=== PATIENT | female | born 1990 | race Caucasian/White ===

== ENCOUNTER 2017-03-05 14:47 | Emergency (ER) | payer BC ==
[~2017-03-05] VITALS: Ht 162.6 cm; Wt 61.5 kg
[2017-03-05 14:49] VITALS: BP 112/63; PULSE 102; RESP 20; TEMP 99; O2SAT 100
[2017-03-05 15:48] LABS: BACTERIA, URINE MOD /hpf; BLOOD, URINE NEG (NEG); COMMENT (UR) CULTURE INDICATED; CULTURE IF INDICATED CULTURE INDICATED; GLUCOSE,URINE NEG (NEG); KETONE, URINE NEG (NEG); NITRITE,URINE POS (NEG); SQUAMOUS EPITHELIAL CELL URINE 3 /hpf (0-5); URINE COLOR YELLOW (YELLW/STRAW)
[2017-03-05] MEDS ORDERED: SODIUM CHLOR 0.9% 1000 ML INJ 1,000 ML IV ONE (17:45)
--- NOTE | 2017-03-05 18:22 | PD ---
HPI Chief Complaint: Related Problem Time Seen by Provider: 17:09 Travel History International Travel<30 days: No Contact w/Intl Traveler<30days: No Traveled to known affect area: No History of Present Illness HPI 26-year-old 15 week female presents to the emergency room for evaluation of pelvic cramping and vaginal bleeding that started last night. Patient had a couple episodes of spotting that she only noticed in her underwear. She called her OB who recommended she come to the emergency room for evaluation. Patient has had adequate care and has confirmed intrauterine . She also reported some low back pain. Denies chronic medical conditions or daily medications. Denies dysuria, urgency, and frequency. PFSH Past Medical History Medical History: Denies Significant Hx ?: Past Surgical History Gynecologic Surgery: Yes (IUD REMOVAL 2015) Social History Alcohol Use: No Tobacco Use: Yes Substance Use: Yes (POT) Allergies-Medications (Allergen,Severity, Reaction): Coded Allergies: iodine (Verified Allergy, Unknown, 03/05/17) Review of Systems Except as stated in HPI: all other systems reviewed are Neg Physical Exam Narrative GENERAL: Well-nourished, well-developed female in no acute distress. Afebrile. Ambulatory. SKIN: Focused skin assessment warm/dry. HEAD: Normocephalic. EYES: No scleral icterus. No injection or drainage. NECK: Supple, trachea midline. No JVD or lymphadenopathy. CARDIOVASCULAR: Regular rate and rhythm without murmurs, gallops, or rubs. RESPIRATORY: Breath sounds equal bilaterally. No accessory muscle use. GASTROINTESTINAL: Abdomen soft, non-tender, nondistended. No guarding. No CVA tenderness. GENITOURINARY: Exam in the presence of nurse and with sterile gloves. Normal external genitalia without lesions or erythema. Vaginal vault without blood or drainage. Cervical os was closed without drainage. No cervical motion tenderness. Uterus nontender and nonenlarged. Bilateral adnexa nontender without masses. Data Data Last Documented VS Vital Signs Date Time Temp Pulse Resp B/P (MAP) Pulse Ox O2 Delivery O2 Flow Rate FiO2 03/05/17 19:00 80 18 118/56 (76) 99 Room Air 03/05/17 14:49 99.0 Orders Orders Urinalysis - C+S If Indicated (03/05/17 14:55) Urine Culture (03/05/17 15:01) Beta Hcg (Quant/Titer) (03/05/17 17:32) Iv Access Insert/Monitor (03/05/17 17:32) Sodium Chlor 0.9% 1000 Ml Inj (Ns 1000 M (03/05/17 17:45) Heart Tones (03/05/17 17:36) Complete Blood Count With Diff (03/05/17 18:22) Type And Screen (03/05/17 18:22) Basic Metabolic Panel (Bmp) (03/05/17 18:25) Protein Corrected Calcium(Pcc) (03/05/17 18:25) Calcium Gluconate Inj (Calcium Gluconate (03/05/17 20:30) Rhogam Only (03/05/17 20:33) Labs Laboratory Tests Test 03/05/17 15:01 03/05/17 18:25 03/05/17 19:13 Urine Color YELLOW Urine Turbidity HAZY Urine pH 6.0 Urine Specific [place] 1.018 Urine Protein NEG mg/dL Urine Glucose (UA) NEG mg/dL Urine Ketones NEG mg/dL Urine Occult Blood NEG Urine Nitrite POS Urine Bilirubin NEG Urine Urobilinogen LESS THAN 2.0 MG/DL Urine Leukocyte Esterase NEG Urine Squamous Epithelial Cells 3 /hpf Urine Bacteria MOD /hpf Microscopic Urinalysis Comment CULTURE INDICATED Blood Urea Nitrogen 9 MG/DL Creatinine 0.47 MG/DL Random Glucose 71 MG/DL Total Protein 6.9 GM/DL Calcium Level 6.8 MG/DL Sodium Level 135 MEQ/L Potassium Level 5.0 MEQ/L Chloride Level 105 MEQ/L Carbon Dioxide Level 22.4 MEQ/L Anion Gap 8 MEQ/L Estimat Glomerular Filtration Rate 163 ML/MIN Protein Corrected Calcium 6.9 MG/DL Human Chorionic Gonadotropin, Quant 72046 MIU/ML White Blood Count 8.5 TH/MM3 Red Blood Count 3.71 MIL/MM3 Hemoglobin 11.2 GM/DL Hematocrit 33.1 % Mean Corpuscular Volume 89.1 FL Mean Corpuscular Hemoglobin 30.2 PG Mean Corpuscular Hemoglobin Concent 33.8 % Red Cell Distribution Width 13.4 % Platelet Count 166 TH/MM3 Mean Platelet Volume 8.4 FL Neutrophils (%) (Auto) 65.5 % Lymphocytes (%) (Auto) 27.0 % Monocytes (%) (Auto) 5.1 % Eosinophils (%) (Auto) 2.1 % Basophils (%) (Auto) 0.3 % Neutrophils # (Auto) 5.6 TH/MM3 Lymphocytes # (Auto) 2.3 TH/MM3 Monocytes # (Auto) 0.4 TH/MM3 Eosinophils # (Auto) 0.2 TH/MM3 Basophils # (Auto) 0.0 TH/MM3 CBC Comment DIFF FINAL Differential Comment MDM Medical Decision Making Medical Screen Exam Complete: Yes Emergency Medical Condition: Yes Medical Record Reviewed: Yes Differential Diagnosis Subchorionic hemorrhage, UTI, ectopic , threatened miscarriage Narrative Course 26-year-old 15 week female presents to the emergency room for evaluation of cramping and vaginal bleeding that started last night. Patient states she only notices blood when she wipes. She has had adequate care. Abdomen is soft, benign. Pelvic exam is benign. No significant tenderness. Os closed without discharge. Bedside ultrasound shows viable intrauterine with a heart rate in [id number]. CBC is unremarkable. BMP remarkable for corrected calcium of 6.9; patient was given 1 [place] [address]. Patient is O- and will be given RhoGAM for vaginal bleeding. UA shows evidence of infection with positive nitrates and bacteria. Patient will be discharged with prescription for Macrobid. She is told to follow-up with her press department manager and plans to do so tomorrow. Told to return for worsening symptoms. She understands and agrees to plan. Diagnosis Primary Impression: Vaginal bleeding before 22 weeks gestation Referrals: Superintendent Custodian Janitor Additional Instructions: Your beta hCG today was 7[address]75. You received RhoGAM today. Follow-up with your press department manager tomorrow. Return for worsening symptoms. Disposition: 01 DISCHARGE HOME Condition: Stable Kerline Hope Mar 05, 2017 18:22
[2017-03-05 19:00] VITALS: BP 118/56; PULSE 80; RESP 18; O2SAT 99
[2017-03-05 19:44] LABS: AUTOMATED NEUTROPHIL # 5.6 TH/MM3 (1.8-7.7); BASOPHIL % 0.3 % (0.0-2.0); EOSINOPHIL # 0.2 TH/MM3 (0-0.4); EOSINOPHIL % 2.1 % (0.0-4.0); HEMATOCRIT 33.1 % (35.0-46.0); HEMO FLAGS DIFF FINAL; LYMPHOCYTE # 2.3 TH/MM3 (1.0-4.8); MEAN CELL VOLUME 89.1 FL (80.0-100.0); MEAN CORPUSCULAR HEMOGLOBIN 30.2 PG (27.0-34.0); MEAN CORPUSCULAR HGB CONC 33.8 % (32.0-36.0); MONO % 5.1 % (0.0-8.0); NEUT % 65.5 % (16.0-70.0); PLATELET COUNT 166 TH/MM3 (150-450); RED BLOOD COUNT 3.71 MIL/MM3 (4.00-5.30); RED CELL DISTRIBUTION WIDTH 13.4 % (11.6-17.2); WHITE BLOOD COUNT 8.5 TH/MM3 (4.0-11.0)
[2017-03-05 19:57] LABS: BICARBONATE 22.4 MEQ/L (21.0-32.0)
[2017-03-05 20:15] LABS: CALCIUM-PROTEIN CORRECTED 6.9 MG/DL (8.5-10.1)
[2017-03-05] MEDS ORDERED: CALCIUM GLUCONATE 10% 1 GM/10 ML VIAL IV PUSH ONE (20:30)
[2017-03-05] MEDS ORDERED: MACR100C2 PO (20:59)
[2017-03-05 21:40] VITALS: BP 117/74; PULSE 75; RESP 16; TEMP 98.7; O2SAT 100
[2017-03-05 21:57] VITALS: BP 115/70; PULSE 75; RESP 16; TEMP 98.7; O2SAT 99
--- NOTE | 2017-03-05 21:57 | PD ---
Physical Exam Narrative I, Dr. Quiles, have reviewed the advance practice practitioner's documentation and am in agreement, met with the patient face to face, made the diagnosis, and the medical decision making was done by me. *My assessment and Findings: Threatened vs. subchorionic hemorrhage 26yo F who is 15 weeks here with vaginal bleeding. Labs reviewed, no leukocytosis. H/H 11.2/33.1. [facility] [place] [address]. Bedside ultrasound showed IUP with heart tones. Corrected calcium low at 6.9, replaced with calcium gluconate. UA positive for nitrite, pt to be given macrobid. Wet prep negative. Pelvic exam unremarkable. Cervical os closed. Pt is O- and given rhogam. Pt has no abdominal pain and will follow up with OBGYN. Data Data Last Documented VS Vital Signs Date Time Temp Pulse Resp B/P (MAP) Pulse Ox O2 Delivery O2 Flow Rate FiO2 03/05/17 19:00 80 18 118/56 (76) 99 Room Air 03/05/17 14:49 99.0 Orders Orders Urinalysis - C+S If Indicated (03/05/17 14:55) Urine Culture (03/05/17 15:01) Beta Hcg (Quant/Titer) (03/05/17 17:32) Iv Access Insert/Monitor (03/05/17 17:32) Sodium Chlor 0.9% 1000 Ml Inj (Ns 1000 M (03/05/17 17:45) Heart Tones (03/05/17 17:36) Complete Blood Count With Diff (03/05/17 18:22) Type And Screen (03/05/17 18:22) Basic Metabolic Panel (Bmp) (03/05/17 18:25) Protein Corrected Calcium(Pcc) (03/05/17 18:25) Calcium Gluconate Inj (Calcium Gluconate (03/05/17 20:30) Rhogam Only (03/05/17 20:33) Gc And Chlamydia Pcr (03/05/17 21:02) Wet Prep Profile (03/05/17 21:02) Ed Discharge Order (03/05/17 21:51) Labs Laboratory Tests Test 03/05/17 15:01 03/05/17 18:25 03/05/17 19:13 03/05/17 21:06 Urine Color YELLOW Urine Turbidity HAZY Urine pH 6.0 Urine Specific [place] 1.018 Urine Protein NEG mg/dL Urine Glucose (UA) NEG mg/dL Urine Ketones NEG mg/dL Urine Occult Blood NEG Urine Nitrite POS Urine Bilirubin NEG Urine Urobilinogen LESS THAN 2.0 MG/DL Urine Leukocyte Esterase NEG Urine Squamous Epithelial Cells 3 /hpf Urine Bacteria MOD /hpf Microscopic Urinalysis Comment CULTURE INDICATED Blood Urea Nitrogen 9 MG/DL Creatinine 0.47 MG/DL Random Glucose 71 MG/DL Total Protein 6.9 GM/DL Calcium Level 6.8 MG/DL Sodium Level 135 MEQ/L Potassium Level 5.0 MEQ/L Chloride Level 105 MEQ/L Carbon Dioxide Level 22.4 MEQ/L Anion Gap 8 MEQ/L Estimat Glomerular Filtration Rate 163 ML/MIN Protein Corrected Calcium 6.9 MG/DL Human Chorionic Gonadotropin, Quant 95058 MIU/ML White Blood Count 8.5 TH/MM3 Red Blood Count 3.71 MIL/MM3 Hemoglobin 11.2 GM/DL Hematocrit 33.1 % Mean Corpuscular Volume 89.1 FL Mean Corpuscular Hemoglobin 30.2 PG Mean Corpuscular Hemoglobin Concent 33.8 % Red Cell Distribution Width 13.4 % Platelet Count 166 TH/MM3 Mean Platelet Volume 8.4 FL Neutrophils (%) (Auto) 65.5 % Lymphocytes (%) (Auto) 27.0 % Monocytes (%) (Auto) 5.1 % Eosinophils (%) (Auto) 2.1 % Basophils (%) (Auto) 0.3 % Neutrophils # (Auto) 5.6 TH/MM3 Lymphocytes # (Auto) 2.3 TH/MM3 Monocytes # (Auto) 0.4 TH/MM3 Eosinophils # (Auto) 0.2 TH/MM3 Basophils # (Auto) 0.0 TH/MM3 CBC Comment DIFF FINAL Differential Comment Clue Cells (Wet Prep) NONE SEEN Vaginal Trichomonas (Wet Prep) NONE SEEN Vaginal Yeast (Wet Prep) NONE SEEN MDM Supervised Visit with NATHAN: Yes Diagnosis Primary Impression: Vaginal bleeding before 22 weeks gestation Referrals: Preventative Maintenance Technician Patient Instructions: General Instructions Departure Forms: Tests/Procedures Additional Instruction: Your [place] was [address]83. You received RhoGAM today. Follow-up with your appliance sales associate tomorrow. Return for worsening symptoms. Scripts Nitrofurantoin Monohydrate Macrocrystals (Macrobid) 100 Mg Capsule 100 MG PO BID for Infection for 7 Days, #14 CAP 0 Refills Prov: Izzy Quiles DO 03/05/17 Disposition: 01 DISCHARGE HOME Condition: Stable Izzy Quiles DO Mar 05, 2017 21:57
[2017-03-05 21:58] VITALS: BP 115/70; PULSE 75; RESP 16; TEMP 98.7; O2SAT 99
[2017-03-05 23:52] LABS: CHLAMYDIA PCR NOT DETECTED (NOT DETECT); NEISSERIA PCR NOT DETECTED (NOT DETECT)
== END 2017-03-05 22:05 | disposition home or self-care (01) ==
LOC: NEPD 14:47
DX: O46.92 Antepartum hemorrhage, unspecified, second trimester (principal); O26.892 Other specified pregnancy related conditions, second trimester; R10.2 Pelvic and perineal pain; R82.71 Bacteriuria; B96.20 Unspecified Escherichia coli [E. coli] as the cause of diseases classified elsewhere; O99.332 Smoking (tobacco) complicating pregnancy, second trimester; Z3A.15 15 weeks gestation of pregnancy
CPT/HCPCS: 80048; 81001; 84155; 84702; 85025; 86850; 86900; 86901; 87077; 87086; 87186; 87210; 87491; 87591; 90384; 96361; 96372; 96374; 99284; J0610; J7030; J2790

== ENCOUNTER 2017-07-28 16:33 | Emergency (ER) | payer BC, OTHER ==
[~2017-07-28] VITALS: Ht 162.6 cm; Wt 72.7 kg
[~2017-07-28 16:33] MED LIST: MACR100C2 PO
[2017-07-28 16:44] VITALS: BP 134/78; PULSE 106; RESP 18; TEMP 98.2; O2SAT 100
[2017-07-28] MEDS ORDERED: predniSONE 20 MG TAB PO ONE (20:00)
[2017-07-28] MEDS ORDERED: PRED20 PO (20:10)
--- NOTE | 2017-07-28 20:11 | PD ---
HPI Chief Complaint: Skin Problem Time Seen by Provider: 19:45 Travel History International Travel<30 days: No Contact w/Intl Traveler<30days: No Traveled to known affect area: No History of Present Illness HPI Patient is a 26-year-old female presenting to emergency department evaluation of a possible allergic reaction. Patient states she had a tricia tattoo applied on Friday, yesterday she started experiencing blistering and burning in the areas of the tattoo. Patient denies any shortness of breath, wheezing, fever, chills. Symptom onset was gradual, symptom severity is moderate. There are no alleviating factors. Patient is 8 months , she has no related complaints today. 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 She has had no history of anaphylaxis in the past. [facility] Past Medical History Medical History: Denies Significant Hx ?: Past Surgical History Gynecologic Surgery: Yes (IUD REMOVAL 2015) Social History Alcohol Use: No Tobacco Use: Yes Substance Use: Yes (POT) Allergies-Medications (Allergen,Severity, Reaction): Coded Allergies: iodine (Verified Allergy, Unknown, 03/05/17) Reported Meds & Prescriptions Reported Meds & Active Scripts Active Macrobid (Nitrofurantoin Monohydrate Macrocrystals) 100 Mg Capsule 100 Mg PO BID 7 Days Review of Systems Except as stated in HPI: all other systems reviewed are Neg Skin: Positive Other (Blistering and peeling) Physical Exam Narrative GENERAL: Well-developed, well-nourished, alert female. Presenting in no acute distress. SKIN: Warm and dry. Blistering noted to the abdomen in the areas of the plaque and a tattoo. No surrounding erythema or induration noted. HEAD: Atraumatic. Normocephalic. EYES: Pupils equal and round. No scleral icterus. No injection or drainage. ENT: No nasal bleeding or discharge. Mucous membranes pink and moist. NECK: Trachea midline. No JVD. CARDIOVASCULAR: Regular rate and rhythm. RESPIRATORY: No accessory muscle use. Clear to auscultation. Breath sounds equal bilaterally. GASTROINTESTINAL: Abdomen soft, non-tender, nondistended. Hepatic and splenic margins not palpable. MUSCULOSKELETAL: Extremities without clubbing, cyanosis, or edema. No obvious deformities. NEUROLOGICAL: Awake and alert. No obvious cranial nerve deficits. Motor grossly within normal limits. Five out of 5 muscle strength in the arms and legs. Normal speech. PSYCHIATRIC: Appropriate mood and affect; insight and judgment normal. Data Data Last Documented VS Vital Signs Date Time Temp Pulse Resp B/P (MAP) Pulse Ox O2 Delivery O2 Flow Rate FiO2 07/28/17 16:44 98.2 106 18 134/78 (96) 100 Orders Orders Prednisone (Deltasone) (07/28/17 20:00) MDM Medical Decision Making Medical Screen Exam Complete: Yes Emergency Medical Condition: Yes Interpretation(s) Vital Signs Date Time Temp Pulse Resp B/P (MAP) Pulse Ox O2 Delivery O2 Flow Rate FiO2 07/28/17 16:44 98.2 106 18 134/78 (96) 100 Differential Diagnosis Contact dermatitis versus anaphylaxis versus cellulitis versus other Narrative Course Patient is well-appearing 26-year-old female presenting for evaluation of an allergic reaction. Patient had a block and a tattoo on Friday, exam is consistent with contact dermatitis. Patient will be given 60 mg of oral prednisone now. She will be discharged home with oral steroids. It was advised that she can take Benadryl as needed as directed for itching. She is encouraged to follow-up with her primary doctor, she was advised she can return to emergency department for any new or worsening symptoms. Case discussed my attending physician. Patient stable for discharge. Diagnosis Primary Impression: Contact dermatitis Qualified Codes: L24.5 - Irritant contact dermatitis due to other chemical products Referrals: Primary Care Physician 2 days Patient Instructions: Contact Dermatitis (ED), General Instructions Additional Instructions: Take medications as directed Follow-up with your primary doctor Return to emergency department for any new worsening symptoms Med/Other Pt SpecificInfo: Prescription(s) given Scripts Prednisone (Prednisone) 20 Mg Tab 40 MG PO DAILY, #3 TAB 0 Refills Take 40 mg (2 tablets) daily for 5 days Prov: Ayana Zee 07/28/17 Disposition: 01 DISCHARGE HOME Condition: Stable Ayana Zee Jul 28, 2017 20:11
== END 2017-07-28 20:50 | disposition home or self-care (01) ==
LOC: NED 16:33 → NEPD 20:50
DX: T65.6X1A Toxic effect of paints and dyes, not elsewhere classified, accidental (unintentional), initial encounter (principal); L24.5 Irritant contact dermatitis due to other chemical products
CPT/HCPCS: 99283; J7512